=== PATIENT | female | born 1950 | race Caucasian/White ===

== ENCOUNTER 2016-07-02 21:28 | Emergency (ER) | payer MEDICARE, OTHER ==
[2016-07-02 22:18] LABS: ABSOLUTE NEUTROPHIL COUNT 3.6 K/mm3 (1.8-7.7); BASO # 0.1 K/mm3 (0.0-0.2); EOS # 0.1 (0.0-0.5); EOS % 1.8 % (0.9-2.9); HEMATOCRIT 42.9 % (37.0-47.0); HEMOGLOBIN 13.8 gm/l (12.0-16.0); IMM NEUT% 0.4 % (0-1); LYMPH # 2.3 (1.0-4.8); LYMPH % 34.7 % (15-45); MEAN CELL VOLUME 90.9 fl (81.0-99.0); MEAN CORPUSCULAR HEMOGLOBIN 29.2 pg (27.0-31.0); MEAN CORPUSCULAR HGB CONC 32.2 g/dl (33.0-37.0); MEAN PLATELET VOLUME 10.9 fl (7.4-10.4); MONO # 0.5 (0.0-0.8); MONO % 7.9 % (4-12); NEUT % 54.2 % (43-75); PLATELET COUNT 199 K/mm3 (130-400); RED CELL DISTRIBUTION WIDTH 15.4 % (11.5-14.5)
[2016-07-02 22:23] LABS: INR 0.9; PROTHROMBIN TIME 9.4 SECONDS (9.3-11.4)
[2016-07-02 22:31] LABS: ALB/GLOB RATIO 1.6 (>1.0); ALBUMIN 4.2 gm/dL (3.5-5.7); CALCIUM 9.4 mg/dL (8.6-10.3)
[2016-07-02 22:32] LABS: TROPONIN I < 0.01 ng/ml (0.0-0.06)
[2016-07-02 22:36] LABS: CKMB ISOENZYME 15.8 ng/ml (0.6-6.3)
[2016-07-02 22:43] LABS: THYROID STIMULATING HORMONE 0.73 uIU/ml (0.34-5.60)
[2016-07-02 22:49] LABS: FREE T4 0.92 ng/dL (0.58-1.64)
== END 2016-07-02 23:56 | disposition home or self-care (01) ==
LOC: ED 21:28
DX: I48.91 Unspecified atrial fibrillation (principal); E03.9 Hypothyroidism, unspecified; Z79.01 Long term (current) use of anticoagulants; Z85.830 Personal history of malignant neoplasm of bone; Z85.72 Personal history of non-Hodgkin lymphomas; Z95.0 Presence of cardiac pacemaker